=== PATIENT | male | born 1995 | race Caucasian/White ===

== ENCOUNTER 2017-03-02 18:13 | Emergency (ER) | payer SELFPAY ==
[~2017-03-02] VITALS: Ht 177.8 cm; Wt 81.5 kg
[2017-03-02 18:39] VITALS: Ht 177.8 cm; Wt 81.5 kg
[2017-03-02] MEDS ORDERED: LIDOCAINE/MYLANTA 40 ML BTL PO ONE (20:30)
[2017-03-02] MEDS ORDERED: FAMO-18 PO (21:34)
--- NOTE | 2017-03-02 21:50 | ERD ---
ER Documentation Chief Complaint Date/Time DATE: 03/02/17 TIME: 21:45 Chief Complaint CHEST DISCOMFORT AFTER TAKING ENERGY SUPPLEMENT SINCE 3AM, TIGHTENING HPI 21-year-old male patient with no significant past medical history presents the ED complaining of chest discomfort that started at 3 AM today. States that he last worked out at 11 PM yesterday. Reports that he takes ghost pre-workout powder prior to his workouts which has caffeine. States that he also takes BCAA powder during his workouts and then after takes creatinine and protein. Reports that he also is taking a [employer] vitamin. Denies any abdominal pain, nausea , vomiting, diarrhea, shortness of breath, wheezing. Denies any family history of heart attacks. Also reports that he feels like a burping sensation. ROS All systems reviewed and are negative except as per history of present illness. Medications Home Meds Active Scripts Famotidine* (Pepcid*) 20 Mg Tablet, 20 MG PO BID, #20 TAB Prov:BRUNO SULLIVAN PA-C 03/02/17 PMhx/Soc Hx Alcohol Use: No Hx Substance Use: No Hx Tobacco Use: No Smoking Status: Never smoker Physical Exam Vitals Vital Signs Date Time Temp Pulse Resp B/P Pulse Ox O2 Delivery O2 Flow Rate FiO2 03/02/17 18:39 98.1 88 17 130/81 100 Physical Exam Const: Ppv-bnw-dgcctmmix, well-nourished. In no acute distress. Head: Atraumatic, normocephalic Eyes: Normal Conjunctiva without injection. No purulent discharge. PERRL. EOMI ENT: Normal external ear. Ear canal without erythema. Tympanic membrane pearly garzon without effusion or bulging. Nasal canal clear with normal turbinates. Moist oropharynx without tonsillar exudates. Non-erythematous pharynx. Uvula midline. No drooling. No trismus. Neck: Full range of motion. No meningismus. No cervical lymphadenopathy. Resp: Clear to auscultation bilaterally. No wheezing, rhonchi, rales, or crackles. No accessory muscle use. No retractions. Cardio: Regular rate and rhythm. No murmurs, rubs or gallops. Abd: Soft, non tender, non distended. Normal bowel sounds. No palpable masses. No rebound tenderness. No guarding. Skin: No petechiae or rashes Back: No midline tenderness. No CVA tenderness. Ext: No cyanosis, or edema. Neur: Awake and alert. Psych: Normal Mood and Affect Results 24 hrs Current Medications Medications (Trade) Dose Ordered Sig/Candice Route PRN Reason Start Time Stop Time Status Last Admin Dose Admin Miscellaneous Medication (Gi Cocktail (2)) 40 ml ONCE ONCE PO 03/02/17 20:30 03/02/17 20:31 DC 03/02/17 20:17 Procedures/MDM 21-year-old male patient with no significant past medical history presents to the ED complaining of chest discomfort that started at 3 AM. This could likely be secondary to the caffeine in the pre-workout supplement powder. Patient is afebrile and nontoxic-appearing. Patient has normal vital signs. An EKG was ordered to further evaluate patient. GI cocktail was ordered to treat patient with improvement of his burping sensation. EKG reviewed and interpreted by Dr. Giordano Rate/Rhythm: [64 bpm, Normal Sinus Rhythm] No ectopy, no ST elevations, normal axis. QRS, ST, T-waves: [No changes consistent w/ acute ischemia] Impression: [No evidence of ischemia or arrhythmia] Patient could likely have an adverse reaction to caffeine in pre-work out powder. Low suspicion for acute myocardial infarction, pneumothorax, pneumonia , cardiac tamponade, pulmonary embolism, AAA, aortic dissection, Boerhaave's syndrome, cardiac dysrhythmias,meningitis, intracranial bleed, seizure, stroke, TIA or other emergent conditions. This case was discussed with my supervising physician Dr. Giordano who agreed with the management and discharge plan. Discharge medications: Famotidine Follow up with primary care physician in 1-2 days. Instructed patient to return to the ED sooner for any worsening symptoms. Patient's questions were answered. Patient understood and agreed with discharge plan. Patient discharged stable. Departure Diagnosis: Primary Impression: Discomfort in chest Additional Impressions: Burping Caffeine adverse reaction Encounter type: initial encounter Qualified Code: T43.615A - Caffeine adverse reaction, initial encounter Condition: Stable Patient Instructions: Exercising Safely (Cardiovascular) Referrals: COMM[facility]ITY CLIN[facility] YOU HAVE RECEIVED A MEDICAL SCREENING EXAM AND THE RESULTS INDICATE THAT YOU DO NOT HAVE A CONDITION THAT REQUIRES URGENT TREATMENT IN THE EMERGENCY DEPARTMENT. FURTHER EVALUATION AND TREATMENT OF YOUR CONDITION CAN WAIT UNTIL YOU ARE SEEN IN YOUR DOCTORS OFFICE WITHIN THE NEXT 1-2 DAYS. IT IS YOUR RESPONSIBILITY TO MAKE AN APPOINTMENT FOR FOLOW-UP CARE. IF YOU HAVE A PRIMARY DOCTOR --you should call your primary doctor and schedule an appointment IF YOU DO NOT HAVE A PRIMARY DOCTOR YOU CAN CALL OUR PHYSICIAN REFERRAL HOTLINE AT IF YOU CAN NOT AFFORD TO SEE A PHYSICIAN YOU CAN CHOSE FROM THE FOLLOWING [facility] [address] [facility] [address] [facility] [address] [facility] [address] [facility] [address] [facility]. [facility] [address] [facility]. [facility] YOU HAVE RECEIVED A MEDICAL SCREENING EXAM AND THE RESULTS INDICATE THAT YOU DO NOT HAVE A CONDITION THAT REQUIRES URGENT TREATMENT IN THE EMERGENCY DEPARTMENT. FURTHER EVALUATION AND TREATMENT OF YOUR CONDITION CAN WAIT UNTIL YOU ARE SEEN IN YOUR DOCTORS OFFICE WITHIN THE NEXT 1-2 DAYS. IT IS YOUR RESPONSIBILITY TO MAKE AN APPOINTMENT FOR FOLOW-UP CARE. IF YOU HAVE A PRIMARY DOCTOR --you should call your primary doctor and schedule and appointment IF YOU DO NOT HAVE A PRIMARY DOCTOR YOU CAN CALL OUR PHYSICIAN REFERRAL HOTLINE AT . IF YOU CAN NOT AFFORD TO SEE A PHYSICIAN YOU CAN CHOSE FROM THE FOLLOWING [facility]: [facility] [address] [place] [address] [facility] [address] [place] [address] [facility] [address] [place] [address] [facility] Additional Instructions: Call your primary care doctor TOMORROW for an appointment during the next 2-3 days.See the doctor sooner or return here if your condition worsens before your appointment time. BRUNO SULLIVAN PA-C Mar 02, 2017 21:50
== END 2017-03-02 21:48 | disposition home or self-care (01) ==
LOC: FTE 18:13
DX: R07.89 Other chest pain (principal); T43.615A Adverse effect of caffeine, initial encounter; R14.2 Eructation
CPT/HCPCS: 93005

== ENCOUNTER 2017-12-17 08:04 | Day surgery (SDC) | END 2017-12-17 10:47 | disposition home or self-care (01) ==

== ENCOUNTER 2018-02-11 14:26 | Inpatient (IN) | END 2018-02-14 20:50 | disposition home IV services (08) | DRG 698 ==

== ENCOUNTER 2018-03-02 08:36 | Day surgery (SDC) | END 2018-03-02 13:22 | disposition home or self-care (01) ==